=== PATIENT | male | born 1990 | race Caucasian/White ===

== ENCOUNTER 2017-06-04 12:51 | Emergency (ER) | payer OTHER ==
[~2017-06-04] VITALS: Ht 185.4 cm; Wt 72.6 kg
[~2017-06-04 12:51] MED LIST: BENADRYL25 M1 PO; DERMACORT1 GM EXT; FIORICET1 TAB PO; PHENERGAN25 M1 PO; PREDNISONE PO
== END 2017-06-05 10:02 | disposition left against medical advice (07) ==
LOC: CED 12:51
DX: Z53.21 Procedure and treatment not carried out due to patient leaving prior to being seen by health care provider (principal)